=== PATIENT | male | born 1940 | race Caucasian/White ===

== ENCOUNTER 2020-02-11 11:32 | Emergency (ER) | payer MEDICARE, SELFPAY ==
[2020-02-11 11:35] VITALS: BP 175/73; PULSE 70; RESP 18; TEMP 36.7; O2SAT 96; BMI 35.4
--- NOTE | 2020-02-11 12:24 | CT_ITS ---
WS: [id number] CT ABDOMEN AND PELVIS NONCONTRAST HISTORY: abdominal pain, constipation, distension TECHNIQUE: Imaging performed through the abdomen and pelvis. Coronal and sagittal reformats are submi tted. All CT scans at [facility] use at least one of these dose optimization techniques: automated exposure control; mA and/or kV adjustment per patient size (includes targeted exams where d ose is matched to clinical indication); or iterative reconstruction. DLP: 1186.18 mGy.cm COMPARISON: 01/05/2017 Lower thorax: Dependent changes at the lung bases. Mild cardiomegaly. Small hiatal hernia. Liver: Mild hepatic steatosis. No bile duct dilatation. Gallbladder: Normally distended gallbladder with adjacent pericholecystic fluid. There is increased d ensity near the neck of the gallbladder which may be stones. No cholelithiasis identified in 2009. Pancreas: Normal size and attenuation. Normal pancreatic duct. No pancreatitis or mass. Spleen: Normal. Adrenal glands: Normal. No mass. Right kidney: Mild perinephric stranding. Normal size kidney with no obstruction. Left kidney: Mild perinephric stranding. No obstruction. Aorta: Mild atherosclerosis abdominal aorta with no aneurysm. No free fluid, intraperitoneal air or significant lymphadenopathy. GI tract: No obstruction of the GI tract. The appendix is normal. RIGHT inguinal hernia contains a lo op of small bowel which is not dilated. Abdominal wall: Fat-containing umbilical hernia. Pelvis: Prostate gland is mildly enlarged. Urinary bladder is normally distended. No adenopathy or fr ee fluid. Osseous structures: Mild straightening of the normal lumbar lordosis. Mild LEFT convex curvature of t he lumbar spine. CT/CT abdomen pelvis wo con [id number] IMPRESSION: 1. Acute cholecystitis. Stones and sludge near the neck of the gallbladder. 2. No bile duct dilatation. 3. Mild cardiomegaly. 4. Normal appendix. 5. No ascites.
--- NOTE | 2020-02-11 12:27 | ED_ITS ---
HPI - Abdominal Pain General: Chief Complaint: Abdominal Pain Stated Complaint: Abdomin pain, nausea,vomiting Time Seen by Provider: 02/11/20 12:05 Source: patient and family (daughter) Mode of arrival: ambulatory Limitations: no limitations History of Present Illness: MD elicited complaint: abdominal pain Pertinent past history: constipation Onset (ago): day(s) (5) Pain Consistency: constant Location: Diffuse Quality: cramping Radiation: none Migration to: no migration Exacerbating factors: nothing Relieving factors: nothing Associated Symptoms: Reports bloating, change in bowel habits, constipation, GI cramping, fever(s) and nausea; Denies anorexia, belching, change in stool character, chills, coffee ground emesis, diarrhea, dyspepsia, dysuria, excessive flatus, heartburn, hematochezia, hematuria, hematemesis, fecal incontinence, loose stools, melena, poor appetite, syncope and vomiting Review of Systems General: Reports: 10 or more systems reviewed and unremarkable except in HPI and below Const: Reports: fever(s); Denies: chills Eyes: Denies: change in vision or blurry vision ENMT: Denies: throat pain, enlarged tonsils, odynophagia, hoarseness, mouth pain or swelling of lips/tongue Card: Denies: syncope Resp: Denies: dyspnea, productive cough or non-productive cough GI: Reports: nausea, constipation, bloating, GI cramping and change in bowel habits; Denies: vomiting, hematemesis, coffee ground emesis, heartburn, diarrhea, belching, excessive flatus, fecal incontinence, change in stool character, hematochezia or melena : Denies: dysuria or hematuria Musc: Denies: neck pain, back pain or extremity swelling Skin/Breast: Denies: rash, pruritus or erythema Neuro: Denies: headache(s), numbness in extremities or weakness in extremities Endo: Denies: polyuria, polydipsia or tired all the time Physical Exam Const: COMMON NORMALS: no acute distress, average body habitus, patient oriented x3, no limitations, healthy appearing, alert and well nourished HENMT: COMMON NORMALS: normocephalic, atraumatic and moist oral mucous membranes HEAD & SCALP: normocephalic and atraumatic Neck/C-Spine: COMMON NORMALS: no meningeal signs and no JVD Resp: COMMON NORMALS: normal respiratory effort, No retractions, No use of accessory muscles, clear to auscultation bilaterally and percussion normal AUSCULTATION: clear to auscultation bilaterally PERCUSSION: percussion normal Cardio: COMMON NORMALS: no JVD, regular rate, regular rhythm, S1 normal heart sound present, S2 normal heart sound present, No gallops present (Cardio), No clicks present (Cardio), No murmurs present (Cardio), No rub (Cardio) and Peripheral pulses 2+ throughout RATE: regular rate RHYTHM: regular rhythm HEART SOUNDS: S1 normal heart sound present and S2 normal heart sound present PERIPHERAL PULSES: Peripheral pulses 2+ throughout GI: COMMON NORMALS: Soft to palpation, No hepatosplenomegaly present, no masses and no bruits INSPECTION: Yes abdominal distension AUSCULTATION: Yes Hyperactive bowel sounds present PALPATION: Yes Soft to palpation, Yes Tenderness to palpation present (GI) (periumbilical), Yes No hepatosplenomegaly present and Yes Hernia present (what feels like a ventral hernia) Extremity: COMMON NORMALS: normal to inspection, full ROM, capillary refill normal, no calf tenderness and no pedal edema Neuro: COMMON NORMALS: patient oriented x3 SENSORIUM/ORIENTATION: Yes alert MENINGEAL SIGNS: Yes no meningeal signs Skin: COMMON NORMALS: no rashes or lesions noted, no wounds, turgor normal, no jaundice, no petechiae and no mottling GENERAL SKIN EXAM: no rashes or lesions noted and turgor normal Course Reevaluation(s): Reevaluation #1: Discussed his labs and imaging findings with him. Explained my conversation with the radiologist who is convinced he has early cholecystitis. Will give him a dose of IV antibiotic here and discharge him with a prescription for oral ciprofloxacin and flagyl and some pain medications. Patient and daughter voiced understanding and all questions answered. Time: 15:14 Vital Signs: Vital signs: Vital Signs Temperature 98.1 F 02/11/20 11:35 Pulse Rate 78 02/11/20 16:33 Respiratory Rate 18 02/11/20 16:33 Blood Pressure 139/76 02/11/20 16:33 Pulse Oximetry 96 02/11/20 11:35 MDM - Abdominal Pain MDM Narrative: Medical decision making narrative: 79-year-old gentleman who presented to the emergency department with complaints of abdominal pain. Evaluation in the emergency department is consistent with early cholecystitis. He is nonseptic, liver enzymes are not elevated, and it is appropriate to treat him on an outpatient basis. He is referred to a surgeon for evaluation in the office. Medical Records: Attestation: I reviewed the patient's medical records. Lab Data: Attestation: I reviewed the patient's lab results. Labs: Lab Results 02/11/20 02/11/20 02/11/20 Range/Units 11:59 11:59 12:40 WBC 13.9 H (4.0-10.0) 10^3/ uL RBC 4.65 (4.1-5.3) 10^6/u L Hgb 11.8 (11.7-16.6) g/dL Hct 38.5 L (42.0-52.0) % MCV 82.8 (80-94) fL MCH 25.4 L (28.0-34.0) pg MCHC 30.6 (30.0-36.0) g/dL RDW 15.8 H (12.1-15.1) % Plt Count 342 (130-400) 10^3/c mm MPV 11.3 H (7.4-10.4) fL Neut % (Auto) 72.8 % Lymph % (Auto) 17.5 % [place] % (Auto) 8.0 % Eos % (Auto) 0.9 % Baso % (Auto) 0.4 % Neut # (Auto) 10.14 H (1.8-7.7) 10^3/u L Lymph # (Auto) 2.4 (0.8-4.8) 10^3/u L [place] # (Auto) 1.1 H (0.2-0.9) 10^3/u L Eos # (Auto) 0.1 (0.0-0.8) 10^3/u L Baso # (Auto) 0.1 (0.0-0.1) 10^3/u L Nucleated RBC % (a uto) 0 % Nucleated RBCs # 0.0 /100WBC Sodium 138 (136-145) mmol/L Potassium 3.6 (3.5-5.1) mmol/L Chloride 98 (98-107) mmol/L Carbon Dioxide 31 H (22-29) mmol/L Anion Gap 12.6 (5-19) BUN 12 (8-23) mg/dL Creatinine 0.5 L (0.7-1.2) mg/dL GFR Calculation Not Reportable Glucose 154 H (65-115) mg/dL Calculated Osmolal ity 289 (285-295) mOsm/k g Lactate (0.5-2.2) mmol/L Calcium 9.1 (8.5-10.5) mg/dL Total Bilirubin 0.7 (0.15-1.2) mg/dL AST 26 (0-40) U/L ALT 25 (0-41) U/L Alkaline Phosphata se 95 (40-130) IU/L C-Reactive Protein 114.6 H (0.0-4.9) mg/L Total Protein 7.5 (6.6-8.7) g/dL Albumin 3.9 (3.5-5.2) g/dL Globulin 3.6 (1.3-4.6) g/dL Lipase 23 (13-60) U/L Urine Color Yellow (Yellow) Urine Appearance Clear (CLEAR) Urine pH 7 (5-7) Ur Specific Gravit y 1.010 (1.005-1.030) Urine Protein Neg (Negative) Urine Glucose (UA) Norm (Normal) Urine Ketones Negative (Negative) Urine Blood Neg (Negative) Urine Nitrate Negative (Negative) Urine Bilirubin Neg (Negative) Urine Urobilinogen 1 H (Negative) mg/dL Ur Leukocyte Priyanka ase Negative (Negative) 02/11/20 Range/Units 12:45 WBC (4.0-10.0) 10^3/ uL RBC (4.1-5.3) 10^6/u L Hgb (11.7-16.6) g/dL Hct (42.0-52.0) % MCV (80-94) fL MCH (28.0-34.0) pg MCHC (30.0-36.0) g/dL RDW (12.1-15.1) % Plt Count (130-400) 10^3/c mm MPV (7.4-10.4) fL Neut % (Auto) % Lymph % (Auto) % [place] % (Auto) % Eos % (Auto) % Baso % (Auto) % Neut # (Auto) (1.8-7.7) 10^3/u L Lymph # (Auto) (0.8-4.8) 10^3/u L [place] # (Auto) (0.2-0.9) 10^3/u L Eos # (Auto) (0.0-0.8) 10^3/u L Baso # (Auto) (0.0-0.1) 10^3/u L Nucleated RBC % (a uto) % Nucleated RBCs # /100WBC Sodium (136-145) mmol/L Potassium (3.5-5.1) mmol/L Chloride (98-107) mmol/L Carbon Dioxide (22-29) mmol/L Anion Gap (5-19) BUN (8-23) mg/dL Creatinine (0.7-1.2) mg/dL GFR Calculation Glucose (65-115) mg/dL Calculated Osmolal ity (285-295) mOsm/k g Lactate 0.9 (0.5-2.2) mmol/L Calcium (8.5-10.5) mg/dL Total Bilirubin (0.15-1.2) mg/dL AST (0-40) U/L ALT (0-41) U/L Alkaline Phosphata se (40-130) IU/L C-Reactive Protein (0.0-4.9) mg/L Total Protein (6.6-8.7) g/dL Albumin (3.5-5.2) g/dL Globulin (1.3-4.6) g/dL Lipase (13-60) U/L Urine Color (Yellow) Urine Appearance (CLEAR) Urine pH (5-7) Ur Specific Gravit y (1.005-1.030) Urine Protein (Negative) Urine Glucose (UA) (Normal) Urine Ketones (Negative) Urine Blood (Negative) Urine Nitrate (Negative) Urine Bilirubin (Negative) Urine Urobilinogen (Negative) mg/dL Ur Leukocyte Priyanka ase (Negative) Imaging Data ^: CT Abd/Pel: Attestation: I personally reviewed and interpreted this imaging study as follows: Radiologist's impression: [address] [address] [address] Scan Report Signed Patient: Jaden Stevenson [facility] #: [id number] : 1Acct#:[id number] Age/Sex: 79 / MADM Date: 02/11/20 Loc: ERRoom/Bed: Attending Dr: Ordering Provider/Ordering MD: Tony Tracy [place] [facility] of Service: 02/11/20 Procedure(s): CT abdomen pelvis wo con [id number] Accession Number(s): [id number] Report Number: [id number] WS: [id number] CT ABDOMEN AND PELVIS NONCONTRAST HISTORY: abdominal pain, constipation, distension TECHNIQUE: Imaging performed through the abdomen and pelvis. Coronal and sagittal reformats are submitted. All CT scans at [facility] use at least one of these dose optimization techniques: automated exposure control; mA and/or kV adjustment per patient size (includes targeted exams where dose is matched to clinical indication); or iterative reconstruction. DLP: 1186.18 mGy.cm COMPARISON: 01/05/2017 Lower thorax: Dependent changes at the lung bases. Mild cardiomegaly. Small hiatal hernia. Liver: Mild hepatic steatosis. No bile duct dilatation. Gallbladder: Normally distended gallbladder with adjacent pericholecystic fluid. There is increased density near the neck of the gallbladder which may be stones. No cholelithiasis identified in 2009. Pancreas: Normal size and attenuation. Normal pancreatic duct. No pancreatitis or mass. Spleen: Normal. Adrenal glands: Normal. No mass. Right kidney: Mild perinephric stranding. Normal size kidney with no obstruction. Left kidney: Mild perinephric stranding. No obstruction. Aorta: Mild atherosclerosis abdominal aorta with no aneurysm. No free fluid, intraperitoneal air or significant lymphadenopathy. GI tract: No obstruction of the GI tract. The appendix is normal. RIGHT inguinal hernia contains a loop of small bowel which is not dilated. Abdominal wall: Fat-containing umbilical hernia. Pelvis: Prostate gland is mildly enlarged. Urinary bladder is normally distended. No adenopathy or free fluid. Osseous structures: Mild straightening of the normal lumbar lordosis. Mild LEFT convex curvature of the lumbar spine. CT/CT abdomen pelvis wo con [id number] IMPRESSION: 1. Acute cholecystitis. Stones and sludge near the neck of the gallbladder. 2. No bile duct dilatation. 3. Mild cardiomegaly. 4. Normal appendix. 5. No ascites. Dictated By:Shanda Carnes DO Signed By:Shanda Carnes DOSigned Date/Time:02/11/20 1344 DD/ 1337 US: Attestation: I personally reviewed and interpreted this imaging study as follows: Radiologist's impression: [address] [address] Ultrasound Report Signed Patient: Jaden Stevenson #: [id number] : 1940cct#:[id number] Age/Sex: 79 / MADM Date: 02/11/20 Loc: ERRoom/Bed: Attending Dr: Ordering Provider/Ordering MD: Tony Tracy MD, [facility] of Service: 02/11/20 Procedure(s): US gall bladder [id number] Accession Number(s): [id number] Report Number: [id number] WS: [id number] RIGHT UPPER QUADRANT ULTRASOUND HISTORY: RUQ pain COMPARISON: 09/09/[address] abdomen 02/11/2020. Liver: 19.9 cm in length. Liver is slightly enlarged. Mild hepatic steatosis. No bile duct dilatation. Gallbladder: Well distended gallbladder. Stones and sludge at the gallbladder neck. There is not a lot of pericholecystic fluid or gallbladder wall thickening that was seen on CT. CBD: 0.5 cm Pancreas: Tail is completely obscured. Right kidney: 13.6 cm in length. Normal size and echogenicity. No hydronephrosis or mass. Aorta and IVC: Unremarkable abdominal aorta and IVC. No ascites. US/US gall bladder [id number] IMPRESSION: 1. Cholelithiasis. Cannot confirm acute cholecystitis based upon the ultrasound findings. CT findings were suspicious for acute cholecystitis. 2. No bile duct dilatation. Dictated By:Shanda Carnes DO Signed By:Shanda Carnes DOSigned Date/Time:02/11/20 1452 DD/ 1441 Discharge Plan Discharge Patient Disposition: Home Clinical Impression: Acute calculous cholecystitis Condition: Stable Prescriptions: New ciprofloxacin HCl 500 mg tablet 500 mg PO BID Qty: 14 RF: 0 Flagyl 500 mg tablet 250 mg PO TID Qty: 21 RF: 0 [place] 5-325 mg tablet 1 tab PO Q8H PRN (Reason: pain) Qty: 12 RF: 0 Discharge Orders: Discharge Order (Routine); Ordered 02/11/20 Ordered By: Tony Tracy Referrals: Jerson Hutson MD [Primary Care Provider] - 1-3 days Discharge Diet: Low Fat Discharge Activity: Increase activity as tolerated Patient Instructions: Cholecystitis (ED) Activity Restrictions/Additional Instructions: Return for any new or worsening symptoms. Follow-up with your primary care provider within 3 days. You will be contacted by the office of the surgeon to schedule an appointment to be seen by the surgeon. Consume a low-fat diet as far to make the pain worse. Take the antibiotics as prescribed and the pain medication as needed. Discharge Date/Time: 02/11/20 16:31 Coding Level of Care Code ED Certified Registered Dental Assistant for Verag Fwd Exam Comprehensive
[2020-02-11 12:38] LABS: Basophils # 0.1 10^3/uL (0.0-0.1); Basophils % 0.4 %; Eosinophils # 0.1 10^3/uL (0.0-0.8); Eosinophils % 0.9 %; Hematocrit 38.5 % (42.0-52.0); Hemoglobin 11.8 g/dL (11.7-16.6); Lymphocytes # 2.4 10^3/uL (0.8-4.8); Lymphocytes % 17.5 %; Mean Corpuscular HGB Conc 30.6 g/dL (30.0-36.0); Mean Corpuscular Hemoglobin 25.4 pg (28.0-34.0); Mean Corpuscular Volume 82.8 fL (80-94); Mean Platelet Volume 11.3 fL (7.4-10.4); Monocytes # 1.1 10^3/uL (0.2-0.9); Neutrophils # 10.14 10^3/uL (1.8-7.7); Neutrophils % 72.8 %; Nucleated Red Blood Cells % 0 %; Platelet Count 342 10^3/cmm (130-400); Red Blood Count 4.65 10^6/uL (4.1-5.3); Red Cell Distribution Width 15.8 % (12.1-15.1); White Blood Count 13.9 10^3/uL (4.0-10.0)
[2020-02-11] MEDS: ondansetron 2 mg/ML SDV 2 mL 4 MG IVP (12:43)
[2020-02-11 12:51] VITALS: RESP 20
[2020-02-11] MEDS: morphine 4 mg/mL SDV 1 mL IVP (12:51)
[2020-02-11 12:54] LABS: Alanine Aminotransferase 25 U/L (0-41); Albumin Level 3.9 g/dL (3.5-5.2); Alkaline Phosphatase 95 IU/L (40-130); Anion Gap 12.6 (5-19); Aspartate Amino Transferase 26 U/L (0-40); Blood Urea Nitrogen 12 mg/dL (8-23); C Reactive Protein 114.6 mg/L (0.0-4.9); Calcium 9.1 mg/dL (8.5-10.5); Carbon Dioxide 31 mmol/L (22-29); Chloride 98 mmol/L (98-107); Globulin 3.6 g/dL (1.3-4.6); Glucose 154 mg/dL (65-115); Lipase 23 U/L (13-60); Osmolality Calculated 289 mOsm/kg (285-295); Potassium 3.6 mmol/L (3.5-5.1); Sodium 138 mmol/L (136-145); Total Bilirubin 0.7 mg/dL (0.15-1.2); Total Protein 7.5 g/dL (6.6-8.7)
[2020-02-11 13:32] LABS: Lactate (Lactic Acid level) 0.9 mmol/L (0.5-2.2)
[2020-02-11 13:49] LABS: Add Urine Microscopic? NO
--- NOTE | 2020-02-11 13:53 | US_ITS ---
WS: [id number] RIGHT UPPER QUADRANT ULTRASOUND HISTORY: RUQ pain COMPARISON: 09/09/[address] abdomen 02/11/2020. Liver: 19.9 cm in length. Liver is slightly enlarged. Mild hepatic steatosis. No bile duct dilatation . Gallbladder: Well distended gallbladder. Stones and sludge at the gallbladder neck. There is not a lo t of pericholecystic fluid or gallbladder wall thickening that was seen on CT. CBD: 0.5 cm Pancreas: Tail is completely obscured. Right kidney: 13.6 cm in length. Normal size and echogenicity. No hydronephrosis or mass. Aorta and IVC: Unremarkable abdominal aorta and IVC. No ascites. US/US gall bladder [id number] IMPRESSION: 1. Cholelithiasis. Cannot confirm acute cholecystitis based upon the ultrasoun d findings. CT findings were suspicious for acute cholecystitis. 2. No bile duct dilatation.
[2020-02-11 13:56] LABS: Bilirubin Urine Neg (Negative); Blood Urine Neg (Negative); Glucose Urine UA Norm (Normal); Ketones Urine Negative (Negative); Leukocyte Esterase Urine Negative (Negative); Nitrate Urine Negative (Negative); Protein Urine Neg (Negative); Urine Appearance Clear (CLEAR); Urine Color Yellow (Yellow); Urobilinogen Urine 1 mg/dL (Negative); pH Urine 7 (5-7)
--- NOTE | 2020-02-11 15:29 | DCPLANNER ---
manager pacu was asked to schedule a follow up appointment for patient with general surgery. manager pacu emailed both Adri and Asya about patient needing a follow up appointment with [facility]. manager pacu gave clinic patients information, the information will be printed and reviewed. Clinic will call patient with appointment information.
[2020-02-11] MEDS: piperacillin-tazobactam 3.375 GM in sodium chloride 0.9% (plus) 50 ML IV (15:32)
[2020-02-11 16:33] VITALS: BP 139/76; PULSE 78; RESP 18
--- NOTE | 2020-02-16 11:52 | DCPLANNER ---
Patient has a follow up appointment scheduled for Sunday, February 16, 2020 at 1:[address] Garcia. Clinic will call patient with appointment information.
--- NOTE | 2020-03-29 12:37 | DCPLANNER ---
Patient had a follow up appointment scheduled for 02.16.20 with general surgery - patient did attend appointment.
== END 2020-02-11 16:31 | disposition home or self-care (01) ==
PROVIDERS: Emergency Provider Family Medicine; PCP Family Medicine
DX: K80.00 Calculus of gallbladder with acute cholecystitis without obstruction (principal)
CPT/HCPCS: 12345; 74176; 76705; 80053; 81003; 83605; 83690; 85025; 86140; 96365; 96375; 99283; 99284; J2270; J2405; J2543

== ENCOUNTER → 2020-02-18 11:51 | Outpatient (BNVA) | payer MEDICARE, SELFPAY | PROVIDERS: PCP Family Medicine; Visit Provider Surgery | DX: Z11.59 Encounter for screening for other viral diseases (principal); K80.00 Calculus of gallbladder with acute cholecystitis without obstruction | CPT/HCPCS: 87635 ==

== ENCOUNTER 2020-02-24 06:18 | Day surgery (SDC) | payer MEDICARE, SELFPAY ==
--- NOTE | 2020-02-23 10:00 | ECG_ITS ---
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 Measurements Intervals [place] Rate: 62 P: 67 [place]: 236 QRS: 60 QRSD: 142 T: 40 QT: 435 QTc: 443 Interpretive Statements SINUS RHYTHM WITH FIRST DEGREE AV BLOCK RIGHT BUNDLE BRANCH BLOCK [120+ ms QRS DURATION, UPRIGHT V1, 40+ ms S IN I/aVL/V4/V5/V6] No previous ECG available for comparison Electronically Signed On 02-23-2020 19:25:29 LADLE PATCHER by Sue Jose M.D. [id number]
--- NOTE | 2020-02-23 10:12 | ANES.PREANE2 ---
Pre-Anesthetic Assessment Pre-Anesthetic Assessment: Height/Weight: Height 1.73 m Weight 104.326 kg Preop Diagnosis: gallstones Proposed Procedure: Operation Date: 02/24/20 07:50 Proposed Procedures p Laparoscopic possible open Cholecystectomy 63133 K80.00(Not Applicable) - Rich Garcia MD Familial anesthetic complications: None Social: Social History: No alcohol and No tobacco Exam: Pre-Anes Outpt Exam: alert, oriented x 3, clear to auscultation bilaterally and regular rate & rhythm Airway: Cervical ROM: WNL (has had neck surgery) MP: 2 Dentition: False CV/HEM: CV/HEM: HTN Metabolic: Metabolic: DM Musc/skel: Musc/skel: Lower Back Pain and OA/DJD Anesthetic Plan: ASA status: 2 Anesthesia: General Risk of > 500 ml blood loss (7ml/kg in children): No PFSH Anesthesia PFSH: Medical History (Updated 02/19/20 @ 00:00 by ) BPH (benign prostatic hyperplasia) Depression Diabetes HTN (hypertension), benign Surgical History History of foot surgery History of neck surgery History of total bilateral knee replacement Family History Denies family history of Anesthesia complication Bleeding disorder Social History Smoking and tobacco status: never smoked Second hand smoke exposure: No Alcohol intake: never Adopted: No Caregiver/support person: Yes Lives independently: Yes Housing: House Marital status: / Data Anesthesia Cardiac Studies: No Data to Display
[2020-02-23 11:55] VITALS: BP 135/71; PULSE 63; RESP 18; TEMP 36.5; O2SAT 93
[2020-02-24] VITALS (7 sets, daily range): BP systolic 99–140; BP diastolic 52–67; PULSE 53–61; RESP 18–26; TEMP 36.6–37; O2SAT 93–95
[2020-02-24 06:47] LABS: Glucose Point of Care 168 mg/dL (70-110)
[2020-02-24] MEDS: sodium chloride 0.9% 1,000 ML 30 ML IV (06:50)
--- NOTE | 2020-02-24 06:59 | W.PM.OPSUD ---
Surgery/Procedure H&P Update DATE OF PROCEDURE: February 24, 2020 DATE H&P PERFORMED: 02/16/20 H&P UPDATE INFORMATION: I have reviewed H&P completed within last 30 days, I have examined patient prior to procedure and No changes to prior documentation PREOP DIAGNOSIS: cholelithiasis PLANNED PROCEDURE: Operation Date: 02/24/20 07:50 Proposed Procedures p Laparoscopic possible open Cholecystectomy 46699 K80.00(Not Applicable) - Rich Garcia MD
--- NOTE | 2020-02-24 07:25 | ANES.PREANE2 ---
Pre-Anesthetic Assessment Pre-Anesthetic Assessment: Height/Weight: Height 1.73 m Weight 104.326 kg Preop Diagnosis: cholelithiasis Proposed Procedure: Operation Date: 02/24/20 07:50 Proposed Procedures p Laparoscopic possible open Cholecystectomy 79097 K80.00(Not Applicable) - Rich Garcia MD Last intake: Intake Last Liquid Date 02/23/20 Last Liquid Time 17:00 Last Solid Date 02/23/20 Last Solid Time 17:00 Social: Social History: No alcohol and No tobacco Exam: Pre-Anes Outpt Exam: alert, oriented x 3, clear to auscultation bilaterally and regular rate & rhythm Airway: Submandibular: WNL Cervical ROM: WNL MP: 2 Dentition: False History/ROS: No significant complaints Pulmonary: Pulmonary: None reported CV/HEM: CV/HEM: HTN Comments: RBBB on EKG, no clinical correlation : Comments: BPH Hepatic: Hepatic: None reported GI: GI: None reported Metabolic: Metabolic: DM Musc/skel: Musc/skel: None reported Neuropsych: Neuropsych: None reported Anesthetic Plan: ASA status: 3 Anesthesia: General PFSH Anesthesia PFSH: Medical History (Updated 02/19/20 @ 00:00 by ) BPH (benign prostatic hyperplasia) Depression Diabetes HTN (hypertension), benign Surgical History History of foot surgery History of neck surgery History of total bilateral knee replacement Family History Denies family history of Anesthesia complication Bleeding disorder Social History Smoking and tobacco status: never smoked Second hand smoke exposure: No Alcohol intake: never Adopted: No Caregiver/support person: Yes Lives independently: Yes Housing: House Marital status: / Data Anesthesia Other Labs: Laboratory Results - last 48 hr 02/24/20 06:43 POC Glucose 168 Cardiac Studies: No Data to Display
--- NOTE | 2020-02-24 09:47 | SUR.OPER ---
0905 - Pt's daughter Laurence updated on surgery progress and pt status via her cell phone.
--- NOTE | 2020-02-24 10:14 | P.OP_ITS ---
Operative Report Date of procedure: February 24, 2020 Pre-op Diagnosis: cholelithiasis Post-op Diagnosis: Acute calculus cholecystitis Gallbladder wall was thickened, there was spillage of stones which were removed except for one possible stone that could not be retrieved. Procedure Done: Laparoscopic cholecystectomy Specimens removed/disposition: Gallbladder Surgeon: Rich Garcia Anesthesia: General Condition: stable Disposition: PACU Procedure: The patient was taken to the operating room and was intubated under general anesthesia. After the antibiotic had been administered, the abdomen was prepped and draped in a sterile manner. Using a #15 blade, a 1 centimeter infraumbilical curvilinear incision was made and using an open Jeremiah technique the peritoneal cavity was entered. A 10 millimeter port was placed and 15 millimeters of pneumoperitoneum was created. A 10 millimeter, 30 degrees scope was then introduced. Three 5 millimeter ports were placed in the epigastric, midclavicular and the anterior axillary line two fingerbreadths below the costal margin on the right side under the direct visualization. The omentum and stomach was adherent to the body of the gallbladder, which was slowly peeled libra y revealing inflamed gallbladder with thickened wall. Ratcheted forceps were introduced into the lateral most port and was used to retract the fundus of the gallbladder cephalad and using forceps the infundibulum of the gallbladder was retracted laterally. There is opening in the fundus of the gallbladder when it was retracted with spillage of bile which is irrigated and suctioned out. Using L-hook cautery the peritoneum overlying the Calot's triangle was opened medially and laterally until the cystic duct was skeletonized. The cystic artery was divided with cautery. Dissection was carried along the body of the gallbladder and after ensuring critical view of safety, 4 clips applied on the cystic duct and cut leaving, 3 clips on the remaining portion of the duct and 2 clips on the remaining portion of the artery. The rest of the gallbladder was dissected off the liver using L-hook cautery. During dissection the opening in the fundus and last resulting in spillage of large stones. There was some oozing from the gallbladder fossa and a 4 x 8 cm Surgicel was placed. An EndoCatch bag was introduced to remove the gallbladder and all the spilled stones. There was possibly another one stone seen but could not be identified later. All the ports were removed under direct visualization and there was no bleeding noted from the port sites. The fascia of the umbilicus was closed using [id number] 0 Vicryl sutures and the subcutaneous tissue was approximated using 3-0 Vicryl sutures. The skin at all four ports were closed using 4-0 Monocryl and surgical glue.. A total of 10 millimeters of 0.5% Marcaine was infiltrated around the port sites. The patient was stable throughout the procedure.
--- NOTE | 2020-02-24 11:13 | ANE.PACU2 ---
Inpatient post-anesthesia follow up: Airway intact: Yes Vital signs: Temperature 98.6 F Pulse Rate 58 Respiratory Rate 18 Blood Pressure 140/59 Pulse Oximetry 95 Oxygen Delivery Me thod Nasal Cannula Oxygen Flow Rate 4 Fraction of Inspir ed Oxygen Hydration adequate: Yes Nausea and vomiting: No Pain level: 3 Mental status: Baseline
== END 2020-02-24 11:25 | disposition home or self-care (01) ==
PROVIDERS: PCP Family Medicine; Visit Provider Surgery
PROC: 0FT44ZZ Resection of Gallbladder, Percutaneous Endoscopic Approach (ICD-10-PCS; CPT 47562; principal; 2020-02-24 07:50)
DX: K80.00 Calculus of gallbladder with acute cholecystitis without obstruction (principal); I10 Essential (primary) hypertension; E11.9 Type 2 diabetes mellitus without complications; Z79.82 Long term (current) use of aspirin; Z79.891 Long term (current) use of opiate analgesic; Z79.4 Long term (current) use of insulin
CPT/HCPCS: 47562; 12345; 36416; 82962; 88304; 93005; 96365; J0690; J2370; J2405; J2704; J2710; J3010; J3490; J7030

== ENCOUNTER 2020-08-22 11:32 | Outpatient (CLI) | payer MEDICARE, SELFPAY ==
--- NOTE | 2020-08-22 11:42 | XRR_ITS ---
PROCEDURE INFORMATION: Exam: XR Thoracic Spine Exam date and time: 08/22/2020 12:39 PM Age: 79 years old Clinical indication: Pain in thoracic spine; Additional info: Chronic back pain/cervical disc disorder TECHNIQUE: Imaging protocol: XR of the thoracic spine. Views: 3 views. COMPARISON: No relevant prior studies available. FINDINGS: Bones/joints: There is narrowing of the intervertebral disc space at multiple levels corresponding to moderate osteoarthritis. No acute fracture. Normal alignment. Soft tissues: Unremarkable. XR/XR thoracic spine 2V [id number] IMPRESSION: Moderate osteoarthritis dorsal spine Otherwise No acute findings.
--- NOTE | 2020-08-22 11:42 | XRR_ITS ---
PROCEDURE INFORMATION: Exam: XR Lumbosacral Spine Exam date and time: 08/22/2020 12:39 PM Age: 79 years old Clinical indication: Low back pain; Additional info: Chronic back pain/cervical disc disorder TECHNIQUE: Imaging protocol: XR of the lumbosacral spine. Views: 2 or 3 views. COMPARISON: CT abdomen pelvis con [id number] 02/11/2020 1:11 PM FINDINGS: Bones/joints: There is narrowing, sclerosis, and vacuum phenomena at multiple levels corresponding to severe osteoarthritis.. No acute fracture. Normal alignment. Soft tissues: Unremarkable. XR/XR lumbar spine 2-3V* [id number] IMPRESSION: 1. Severe osteoarthritis 2. Otherwise No acute findings.
--- NOTE | 2020-08-22 11:42 | XRR_ITS ---
PROCEDURE INFORMATION: Exam: XR Cervical Spine Exam date and time: 08/22/2020 12:39 PM Age: 79 years old Clinical indication: Pain; Cervicalgia; Prior surgery; Surgery type: C spine; Additional info: Chronic back pain/cervical disc disorder TECHNIQUE: Imaging protocol: XR of the cervical spine. Views: 2 or 3 views. COMPARISON: No relevant prior studies available. FINDINGS: Bones/joints: There is severe osteopenia and osteoarthritis present. Anterior spinal fusion is seen with metallic plate and screws anterior to C5-C6 and C7.. No acute fracture. There is loss of cervical lordosis consistent with muscle spasm. Soft tissues: Unremarkable. XR/XR cervical spine 3V* [id number] IMPRESSION: 1. No acute findings. 2. Surgical hardware anterior to cervical spine 3. Osteopenia and osteoarthritis. 4. Loss of cervical lordosis
== END 2020-08-22 11:33 | disposition home or self-care (01) ==
PROVIDERS: PCP Family Medicine; Visit Provider Family Medicine
DX: M54.5 Low back pain (principal); M54.6 Pain in thoracic spine; M54.2 Cervicalgia; M47.816 Spondylosis without myelopathy or radiculopathy, lumbar region; M85.88 Other specified disorders of bone density and structure, other site; M47.812 Spondylosis without myelopathy or radiculopathy, cervical region
CPT/HCPCS: 72040; 72070; 72100

== ENCOUNTER → 2020-09-22 08:02 | Outpatient (BNVA) | payer MEDICARE, SELFPAY | PROVIDERS: PCP Family Medicine; Referring Provider Family Medicine; Visit Provider Orthopaedic Surgery | DX: M47.896 Other spondylosis, lumbar region (principal); M54.5 Low back pain | CPT/HCPCS: 72120 ==

== ENCOUNTER 2020-10-13 16:57 | Outpatient (CLI) | payer MEDICARE, SELFPAY ==
--- NOTE | 2020-10-13 17:30 | MR_ITS ---
WS: [id number] MRI LUMBAR SPINE NONCONTRAST HISTORY: M54.9 - Dorsalgia, unspecified COMPARISON: None available. TECHNIQUE: Sagittal and axial multisequence imaging is submitted. Marked straightening of the normal lumbar lordosis. L1 anterolisthesis by 6 mm and L2 retrolisthesis by 5 mm. Severe disc space narrowing and desiccation throughout the lumbar spine. Reactive endplate marrow denise ma at L1-2 and L4-5. No acute fractures. Conus terminates normally at L1. T12-L1: Diffuse asymmetric disc bulging extends greatest to the LEFT. There is effacement of ventral thecal sac and mass effect causing mild central and RIGHT subarticular recess stenosis. Moderate to s evere LEFT subarticular stenosis and moderate bilateral foraminal stenosis. L1-L2: Marked asymmetric disc bulging with moderate facet and ligamentum flavum arthritis. Moderate c entral and bilateral subarticular recess and RIGHT foraminal stenosis. Severe LEFT foraminal stenosis due to disc and osteophyte disease. L2-L3: Diffuse annular disc bulging with facet and ligamentum flavum arthritis. Disc bulging is causi ng effacement of ventral CSF and extends into the lateral recesses and subarticular foramina and extr aforaminal. Moderate central stenosis. Suspect there is a small disc protrusion extending into the LE FT lateral recess which may be encroaching upon the LEFT L3 nerve root. Moderate bilateral foraminal stenosis with moderate to severe bilateral subarticular recess stenosis greatest on the LEFT. L3-L4: Diffuse annular disc bulging and osteophytic ridging. Disc and osteophyte encroachment upon th e thecal sac and foramen causing mild central stenosis. Moderate bilateral subarticular recess and fo raminal stenosis. L4-L5: Diffuse asymmetric disc bulging and osteophytic ridging with moderate bilateral facet joint ar thritis. Asymmetric disc bulging and protrusion extends into the LEFT lateral recess posteriorly disp lacing the LEFT L5 nerve root. Mild central stenosis with severe bilateral subarticular recess and fo raminal stenosis. L5-S1: Diffuse annular disc bulging and osteophytic ridging with mild facet arthritis. Moderate to se jessa LEFT foraminal stenosis and LEFT subarticular recess stenosis. Only mild stenosis on the RIGHT. Enlarged prostate gland encroaches into the urinary bladder. MR/MR lumbar spine wo con* [id number] IMPRESSION: 1. 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 Stenose s due to combination of disc disease, disc protrusions, facet and ligamentum fl avum arthritis. 2. Moderate to severe LEFT subarticular recess and moderate bilateral foramina l stenosis at T12-L1. 3. Severe LEFT foraminal stenosis at L1-2 with moderate central and bilateral subarticular and RIGHT foraminal stenosis. 4. Moderate to severe bilateral subarticular recess stenosis on the LEFT at L2 -3 with moderate central stenosis. Suspect there may be a small disc protrusion at extending into the LEFT lateral recess abutting the L3 nerve root. 5. Moderate bilateral subarticular and foraminal stenosis at L3-4. 6. Severe bilateral subarticular recess and foraminal stenosis at L4-5. 7. Moderate to severe LEFT foraminal and LEFT subarticular recess stenosis at L5-S1 with only mild stenosis on the RIGHT. 8. Mild anterolisthesis of L1 retrolisthesis of L2. 9. Severe disc space narrowing and desiccation at all levels.
== END 2020-10-13 16:58 | disposition home or self-care (01) ==
LOC: RADSHAW 17:01
PROVIDERS: PCP Family Medicine; Visit Provider Orthopaedic Surgery
DX: M54.5 Low back pain (principal); M48.07 Spinal stenosis, lumbosacral region; M48.061 Spinal stenosis, lumbar region without neurogenic claudication; M48.05 Spinal stenosis, thoracolumbar region
CPT/HCPCS: 72148

== ENCOUNTER → 2020-10-31 10:22 | Outpatient (BNVA) | payer MEDICARE, SELFPAY | PROVIDERS: PCP Family Medicine; Referring Provider Orthopaedic Surgery; Visit Provider Anesthesiology Pain Medicine | DX: G89.29 Other chronic pain (principal); M48.062 Spinal stenosis, lumbar region with neurogenic claudication; Z79.891 Long term (current) use of opiate analgesic | CPT/HCPCS: 99205 ==

== ENCOUNTER 2021-03-16 12:25 | Day surgery (SDC) | payer MEDICARE, SELFPAY ==
[2021-03-16] VITALS (17 sets, daily range): BP systolic 137–164; BP diastolic 63–79; PULSE 50–74; RESP 14–18; TEMP 36.3–36.8; O2SAT 90–98
--- NOTE | 2021-03-16 12:38 | ED_ITS ---
HPI - Abdominal Pain General: Chief Complaint: Abdominal Pain Stated Complaint: RIGHT LOWER ABDOMINAL PAIN Time Seen by Provider: 03/16/21 12:36 History of Present Illness: HPI narrative: Mr. Stevenson is an 80-year-old gentleman with significant past medical history of back pain, diabetes, hypertension, hyperlipidemia presents to the emergency department due to abdominal pain. Symptom onset was at rest approximately 2 days ago. Initially had right lower quadrant pain that lasted approximately 3 hours ago. He describes it as a aching occasionally sharp sensation. Intensity is moderate to severe when present. He has now had recurrent episodes though only mild pain right now. No specific exacerbating relieving factors. No signs of systemic illness. No nausea or vomiting. He has had a few episodes of loose stools however these have resolved. Denies frequent similar episodes in the past. He does have a history of abdominal surgeries Review of Systems General: Reports: 10 or more systems reviewed and unremarkable except in HPI and below PFSH ED PFSH: Medical History (Updated 03/17/21 @ 00:01 by ) BPH (benign prostatic hyperplasia) Depression Diabetes HTN (hypertension), benign Surgical History (Updated 03/16/21 @ 15:41 by Cy Meadows MD) History of foot surgery L -- chain saw injury History of neck surgery ACF x 1 History of total bilateral knee replacement Status post laparoscopic cholecystectomy (02/24/20) Family History Denies family history of Anesthesia complication Bleeding disorder Social History Second hand smoke exposure: No Alcohol intake: never Adopted: No Caregiver/support person: Yes Lives independently: Yes Housing: House Marital status: / Physical Exam Narrative: EXAM NARRATIVE: GENERAL/CONSTITUTIONAL - well-appearing. Uncomfortable Eyes - PERRL, no conjunctival injection ENMT - Atraumatic external nose and ears. Moist mucous membranes NECK - supple. trachea midline CARDIOVASCULAR - regular rate and rhythm. RESPIRATORY -clear to auscultation bilaterally. No retractions or accessory muscle use. ABDOMEN/GI - generalized tenderness palpation worse in the lower quadrants. There is a firm exquisitely tender mass palpable in the right inguinal region separate from normal bilateral testicles. There are no overlying skin changes. MSK - Extremities without obvious deformity or tenderness to palpation SKIN - Warm, Dry NEURO - alert and appropriately oriented. Moves all extremities equally. Course ED course: - Patient was seen and evaluated by me at bedside - Patient placed on cardiac monitors, IV access obtained - Initial evaluation notable for uncomfortable appearance, nontoxic. Concerning right inguinal mass. -Analgesia ordered - Labs notable for mild leukocytosis. No significant electrolyte abnormality, lactate normal. - Imaging notable for incarcerated inguinal hernia with small bowel obstruction. Prostate is abnormal and requires further outpatient evaluation. - Upon serial reexamination after treatment the patient was transiently improved with analgesia - Based on patient history, evaluation, labs, and imaging as interpreted the most likely cause of the patient's condition is incarcerated inguinal hernia with small bowel obstruction. - Dr. Meadows with the surgery service with consulted and evaluated the patient. Patient to be taken to surgery for surgical management. Vital Signs: Vital signs: Vital Signs Temperature 97.3 F L 03/16/21 17:35 Pulse Rate 69 03/16/21 18:15 Respiratory Rate 18 03/16/21 18:15 Blood Pressure 137/77 03/16/21 18:15 Pulse Oximetry 97 03/16/21 18:15 MDM - Abdominal Pain Medical Records: Attestation: I reviewed the patient's medical records. Lab Data: Attestation: I reviewed the patient's lab results. Labs: Lab Results 03/16/21 03/16/21 03/16/21 12:40 12:40 12:40 WBC 12.6 10^3/uL H 10 ^3/uL (4.0-10.0) RBC 5.35 10^6/uL H 10 ^6/uL (4.1-5.3) Hgb 15.9 g/dL g/dL (11.7-16.6) Hct 48.0 % % (42.0-52.0) MCV 89.7 fl fl (80-94) MCH 29.7 pg pg (28.0-34.0) MCHC 33.1 g/dL g/dL (30.0-36.0) RDW 14.1 % % (12.1-15.1) Plt Count 345 10^3/cmm 10^3 /cmm (130-400) MPV 10.4 fL fL (7.4-10.4) Neut % (Auto) 64.2 % % Lymph % (Auto) 28.6 % % [place] % (Auto) 5.0 % % Eos % (Auto) 1.6 % % Baso % (Auto) 0.4 % % Neut # (Auto) 8.12 10^3/uL H 10 ^3/uL (1.8-7.7) Lymph # (Auto) 3.6 10^3/uL 10^3/ uL (0.8-4.8) [place] # (Auto) 0.6 10^3/uL 10^3/ uL (0.2-0.9) Eos # (Auto) 0.2 10^3/uL 10^3/ uL (0.0-0.8) Baso # (Auto) 0.1 10^3/uL 10^3/ uL (0.0-0.1) Nucleated RBC % (a uto) 0 % % Nucleated RBCs # 0.0 /100WBC /100W BC Sodium 137 mmol/L mmol/L (136-145) Potassium 3.7 mmol/L mmol/L (3.5-5.1) Chloride 98 mmol/L mmol/L (98-107) Carbon Dioxide 27 mmol/L mmol/L (22-29) Anion Gap 15.7 (5-19) BUN 17 mg/dL mg/dL (8-23) Creatinine 0.6 mg/dL L mg/dL (0.7-1.2) GFR Calculation Not Reportable Glucose 115 mg/dL mg/dL (65-115) Calculated Osmolal ity 286 mOsm/kg mOsm/ kg (285-295) Lactate Calcium 9.1 mg/dL mg/dL (8.5-10.5) Total Bilirubin 0.3 mg/dL mg/dL (0.15-1.2) AST 17 U/L U/L (0-40) ALT 11 U/L U/L (0-41) Alkaline Phosphata se 103 IU/L IU/L (40-130) Total Protein 7.8 g/dL g/dL (6.6-8.7) Albumin 4.5 g/dL g/dL (3.5-5.2) Globulin 3.3 g/dL g/dL (1.3-4.6) Lipase 31 U/L U/L (13-60) Urine Color Yellow (Yellow) Urine Appearance Clear (CLEAR) Urine pH 6 (5-7) Ur Specific Gravit y 1.020 (1.005-1.030) Urine Protein Neg (Negative) Urine Glucose (UA) Norm (Normal) Urine Ketones 2+ H (Negative) Urine Blood Neg (Negative) Urine Nitrate Negative (Negative) Urine Bilirubin Neg (Negative) Urine Urobilinogen Norm mg/dL mg/dL (Negative) Ur Leukocyte Priyanka ase Negative (Negative) 03/16/21 13:50 WBC RBC Hgb Hct MCV MCH MCHC RDW Plt Count MPV Neut % (Auto) Lymph % (Auto) [place] % (Auto) Eos % (Auto) Baso % (Auto) Neut # (Auto) Lymph # (Auto) [place] # (Auto) Eos # (Auto) Baso # (Auto) Nucleated RBC % (a uto) Nucleated RBCs # Sodium Potassium Chloride Carbon Dioxide Anion Gap BUN Creatinine GFR Calculation Glucose Calculated Osmolal ity Lactate 0.8 mmol/L mmol/L (0.5-2.2) Calcium Total Bilirubin AST ALT Alkaline Phosphata se Total Protein Albumin Globulin Lipase Urine Color Urine Appearance Urine pH Ur Specific Gravit y Urine Protein Urine Glucose (UA) Urine Ketones Urine Blood Urine Nitrate Urine Bilirubin Urine Urobilinogen Ur Leukocyte Priyanka ase Imaging Data ^: CT Abd/Pel: Radiologist's impression: IMPRESSION: 1. Right inguinal hernia with incarcerated obstructed small bowel loop. Fluid- filled bowel loop in the hernia with proximal obstruction and associated fluid. No free air. Distal small bowel loops appear decompressed. 2. Colon is decompressed. 3. Markedly enlarged enhancing nodular prostate measuring 5.4 x 5.7 cm with thickening of the seminal vesicles. Recommend correlation for PSA. Findings are suspicious for neoplasia/hyperplasia. Discharge Plan Discharge Patient Disposition: Placed in Observation Clinical Impression: Small bowel obstruction Discharge Diet: Advance as tolerated Discharge Activity: Limit activity as instructed Coding Level of Care Code ED Agricultural Specialist for Jhon Rm
--- NOTE | 2021-03-16 13:00 | CT_ITS ---
WS: [id number] CT ABDOMEN PELVIS TECHNIQUE: Contrast-enhanced CT of the abdomen and pelvis with coronal and sagittal reformatted image s. CLINICAL INFORMATION: RLQ abd pain, ?hernia COMPARISON: CT February 11, 2020 DLP: 1660.[address] scans at [facility] use at least one of these dose optimization techniques: automated e xposure control; mA and/or kV adjustment per patient size (includes targeted exams where dose is matc hed to clinical indication); or iterative reconstruction. FINDINGS: Right inguinal hernia with herniated small bowel loops. Incarcerated dilated small bowel loop in the inguinal hernia with evidence of obstruction. Proximal small bowel obstruction with fluid-filled dila ema small bowel loops and air-fluid levels. Small bowel loops measure up to 3 cm. No free air. Distal small bowel loops appear decompressed. Marked heterogeneous nodular enhancement the prostate with thickening of the seminal vesicles. Prosta te measures 5.7 x 5.4 CM. Recommend correlation PSA. Evidence of bladder outlet obstruction. Small am ount of free fluid in the pelvis. Colon is decompressed. Bibasilar atelectasis. Normal liver. Prior cholecystectomy. Normal GE junction. Adrenal glands are no rmal. Normal renal parenchymal enhancement. No hydronephrosis in either kidney. Normal caliber abdomi nal aorta. Advanced spondylitic changes lumbar spine. CT/CT abdomen pelvis w con* [id number] IMPRESSION: 1. Right inguinal hernia with incarcerated obstructed small bowel loop. Fluid- filled bowel loop in the hernia with proximal obstruction and associated fluid. No free air. Distal small bowel loops appear decompressed. 2. Colon is decompressed. 3. Markedly enlarged enhancing nodular prostate measuring 5.4 x 5.7 cm with th ickening of the seminal vesicles. Recommend correlation for PSA. Findings are s uspicious for neoplasia/hyperplasia. Discussed with Dr. Hyde at 03/16/2021 2:37 PM.
[2021-03-16 13:13] LABS: Add Urine Microscopic? NO; Charge for UA Resulting for Rev
[2021-03-16 13:21] LABS: Basophils # 0.1 10^3/uL (0.0-0.1); Basophils % 0.4 %; Eosinophils # 0.2 10^3/uL (0.0-0.8); Eosinophils % 1.6 %; Hemoglobin 15.9 g/dL (11.7-16.6); Lymphocytes # 3.6 10^3/uL (0.8-4.8); Lymphocytes % 28.6 %; Mean Corpuscular HGB Conc 33.1 g/dL (30.0-36.0); Mean Corpuscular Hemoglobin 29.7 pg (28.0-34.0); Mean Corpuscular Volume 89.7 fl (80-94); Mean Platelet Volume 10.4 fL (7.4-10.4); Monocytes # 0.6 10^3/uL (0.2-0.9); Neutrophils # 8.12 10^3/uL (1.8-7.7); Neutrophils % 64.2 %; Nucleated Red Blood Cells % 0 %; Platelet Count 345 10^3/cmm (130-400); Red Blood Count 5.35 10^6/uL (4.1-5.3); Red Cell Distribution Width 14.1 % (12.1-15.1); White Blood Count 12.6 10^3/uL (4.0-10.0)
[2021-03-16] MEDS: morphine 4 mg/mL SDV 1 mL IVP (13:25)
[2021-03-16 13:27] LABS: Bilirubin Urine Neg (Negative); Blood Urine Neg (Negative); Glucose Urine UA Norm (Normal); Ketones Urine 2+ (Negative); Leukocyte Esterase Urine Negative (Negative); Nitrate Urine Negative (Negative); Protein Urine Neg (Negative); Urine Appearance Clear (CLEAR); Urine Color Yellow (Yellow); Urobilinogen Urine Norm (Negative); pH Urine 6 (5-7)
[2021-03-16 13:47] LABS: Alanine Aminotransferase 11 U/L (0-41); Albumin Level 4.5 g/dL (3.5-5.2); Alkaline Phosphatase 103 IU/L (40-130); Anion Gap 15.7 (5-19); Aspartate Amino Transferase 17 U/L (0-40); Blood Urea Nitrogen 17 mg/dL (8-23); Calcium 9.1 mg/dL (8.5-10.5); Carbon Dioxide 27 mmol/L (22-29); Chloride 98 mmol/L (98-107); Globulin 3.3 g/dL (1.3-4.6); Glucose 115 mg/dL (65-115); Lipase 31 U/L (13-60); Osmolality Calculated 286 mOsm/kg (285-295); Potassium 3.7 mmol/L (3.5-5.1); Sodium 137 mmol/L (136-145); Total Bilirubin 0.3 mg/dL (0.15-1.2); Total Protein 7.8 g/dL (6.6-8.7)
[2021-03-16 14:29] LABS: Lactate (Lactic Acid level) 0.8 mmol/L (0.5-2.2)
--- NOTE | 2021-03-16 15:34 | ANES.PREANE2 ---
Pre-Anesthetic Assessment Pre-Anesthetic Assessment: Height/Weight: Height 1.73 m Temp Pulse Resp BP Pulse Ox 98.3 F 74 18 160/76 97 03/16/21 12:42 03/16/21 12:37 03/16/21 13:25 03/16/21 15:15 03/16/21 15:15 Preop Diagnosis: Incarcerated hernia Proposed Procedure: Operation Date: 03/16/21 16:30 Proposed Procedures p Inguinal Hernia Repair(Right) - Cy Meadows MD Was Beta Doc taken within 24 hours: Yes Was Clonidine taken within 24 hours: N/A Last Intake: 04:30 Social: Social History: No alcohol and No tobacco Packs per day: Former cigar smoker Exam: Pre-Anes Outpt Exam: alert, oriented x 3, clear to auscultation bilaterally and regular rate & rhythm Airway: Submandibular: WNL Cervical ROM: Other (Limited extension) MP: 2 Dentition: False History/ROS: No significant history except as noted Pulmonary: Pulmonary: None reported CV/HEM: CV/HEM: HTN Comments: METs > 4 : Comments: BPH Hepatic: Hepatic: None reported GI: Comments: Incarcerated bowel. Denies GERD Metabolic: Metabolic: DM Musc/skel: Musc/skel: None reported Neuropsych: Neuropsych: None reported Anesthetic Plan: ASA status: 2E Anesthesia: Anesthesia Evaluation and General Other: RSI Risk of > 500 ml blood loss (7ml/kg in children): No Meds/Allergies Current Medications: Current Medications Generic Name Dose Route Start Last Admin Trade Name Freq PRN Reason Stop Dose Admin Morphine Sulfate 4 mg 03/16/21 13:16 03/16/21 13:25 Morphine 4 Mg/Ml Sdv 1 Ml IVP 4 mg Q1H PRN Administration pain PFSH Anesthesia PFSH: Medical History (Updated 03/16/21 @ 15:38 by Cy Meadows MD) BPH (benign prostatic hyperplasia) Depression Diabetes HTN (hypertension), benign Surgical History (Updated 03/16/21 @ 15:41 by Cy Meadows MD) History of foot surgery L -- chain saw injury History of neck surgery ACF x 1 History of total bilateral knee replacement Status post laparoscopic cholecystectomy (02/24/20) Family History Denies family history of Anesthesia complication Bleeding disorder Social History Second hand smoke exposure: No Alcohol intake: never Adopted: No Caregiver/support person: Yes Lives independently: Yes Housing: House Marital status: / Data Anesthesia CBC & Chem 7: 03/16/21 12:40 03/16/21 12:40 Other Labs: Laboratory Results - last 48 hr 03/16/21 03/16/21 03/16/21 12:40 12:40 12:40 WBC 12.6 H RBC 5.35 H Hgb 15.9 Hct 48.0 MCV 89.7 MCH 29.7 MCHC 33.1 RDW 14.1 Plt Count 345 MPV 10.4 Neut % (Auto) 64.2 Lymph % (Auto) 28.6 [place] % (Auto) 5.0 Eos % (Auto) 1.6 Baso % (Auto) 0.4 Neut # (Auto) 8.12 H Lymph # (Auto) 3.6 [place] # (Auto) 0.6 Eos # (Auto) 0.2 Baso # (Auto) 0.1 Nucleated RBC % (auto) 0 Nucleated RBCs # 0.0 Sodium 137 Potassium 3.7 Chloride 98 Carbon Dioxide 27 Anion Gap 15.7 BUN 17 Creatinine 0.6 L GFR Calculation Not Reportable Glucose 115 Calculated Osmolality 286 Lactate Calcium 9.1 Total Bilirubin 0.3 AST 17 ALT 11 Alkaline Phosphatase 103 Total Protein 7.8 Albumin 4.5 Globulin 3.3 Lipase 31 Urine Color Yellow Urine Appearance Clear Urine pH 6 Ur Specific [place] 1.020 Urine Protein Neg Urine Glucose (UA) Norm Urine Ketones 2+ H Urine Blood Neg Urine Nitrate Negative Urine Bilirubin Neg Urine Urobilinogen Norm Ur Leukocyte Esterase Negative 03/16/21 13:50 WBC RBC Hgb Hct MCV MCH MCHC RDW Plt Count MPV Neut % (Auto) Lymph % (Auto) [place] % (Auto) Eos % (Auto) Baso % (Auto) Neut # (Auto) Lymph # (Auto) [place] # (Auto) Eos # (Auto) Baso # (Auto) Nucleated RBC % (auto) Nucleated RBCs # Sodium Potassium Chloride Carbon Dioxide Anion Gap BUN Creatinine GFR Calculation Glucose Calculated Osmolality Lactate 0.8 Calcium Total Bilirubin AST ALT Alkaline Phosphatase Total Protein Albumin Globulin Lipase Urine Color Urine Appearance Urine pH Ur Specific [place] Urine Protein Urine Glucose (UA) Urine Ketones Urine Blood Urine Nitrate Urine Bilirubin Urine Urobilinogen Ur Leukocyte Esterase Cardiac Studies: No Data to Display
--- NOTE | 2021-03-16 15:35 | PM.HP ---
Providers/Chief Complaint Admitting Physician: General Surgery Cy Meadows MD Primary Care Provider: Jerson Hutson MD Chief Complaint: RIGHT LOWER ABDOMINAL PAIN History of Present Illness Jaden Stevenson is a 80 year old male who tells me that he has had a month of tenderness in the right inguinal region. It got worse yesterday. He says he said diarrhea for about a day and a half. He has not really had much in the way of nausea or vomiting. He ate breakfast at 430 this morning and did not have any problem. He eventually came to the emergency room because of his pain and a CAT scan revealed evidence of an incarcerated right inguinal hernia with evidence of a bowel obstruction. The patient tells me he has had a right inguinal hernia ever since he was a young child. He remembers wearing a truss from about the age of 5 to the age of 12. He said after that the hernia never really seem to bother him very much and so he may have had some discomfort over the years but has not really noticed a larger bulge, etc. Review of Systems General: Reports: 10 or more systems reviewed and unremarkable except in HPI and below Const: Denies: fever(s) Card: Denies: chest pain GI: Reports: abdominal pain (Right lower abdomen/groin crease) and diarrhea; Denies: nausea or vomiting Medications/Allergies Home Medications Medication Instructions Recorded Confirmed Last Taken Type aspirin 81 mg tablet,delayed 81 mg PO QAM 02/16/20 03/16/21 03/16/21 History release carvedilol 25 mg tablet 25 mg PO BID 02/16/20 03/16/21 03/16/21 History escitalopram oxalate 10 mg tablet 10 mg PO QAM 02/16/20 03/16/21 1 Day Ago History ~02/23/20 finasteride 5 mg tablet 5 mg PO BEDTIME 02/16/20 03/16/21 03/15/21 History amlodipine 10 mg PO QAM 02/23/20 03/16/21 03/16/21 History tamsulosin 0.4 mg PO BID 02/23/20 03/16/21 03/16/21 History temazepam 15 mg PO DAILY PRN 02/23/20 03/16/21 02/23/20 History docusate sodium [Colace] 100 mg PO BID PRN 03/16/21 03/16/21 Unknown History hydrochlorothiazide 25 mg PO DAILY PRN 03/16/21 03/16/21 Unknown History hydrocodone-acetaminophen 1 tab PO TID PRN 03/16/21 03/16/21 03/16/21 09:00 History insulin glargine [Lantus U-100 12 unit SUBCUT QAM 03/16/21 03/16/21 03/16/21 History Insulin] Allergies Allergy/AdvReac Type Severity Reaction Status Date / Time No Known Allergies Allergy Verified 03/16/21 15:27 PFSH Acute PFSH: Medical History (Updated 03/16/21 @ 15:38 by Cy Meadows MD) BPH (benign prostatic hyperplasia) Depression Diabetes HTN (hypertension), benign Surgical History (Updated 03/16/21 @ 15:41 by Cy Meadows MD) History of foot surgery L -- chain saw injury History of neck surgery [facility] x 1 History of total bilateral knee replacement Status post laparoscopic cholecystectomy (02/24/20) Family History Denies family history of Anesthesia complication Bleeding disorder Social History Second hand smoke exposure: No Alcohol intake: never Adopted: No Caregiver/support person: Yes Lives independently: Yes Housing: House Marital status: / Vitals/I&O/Wt Last Vital Signs Temp 98.3 F 03/16/21 12:42 Pulse 74 03/16/21 12:37 Resp 18 03/16/21 13:25 BP 160/76 03/16/21 15:15 Pulse Ox 97 03/16/21 15:15 Physical Exam Narrative: EXAM NARRATIVE: The patient was encountered in his room in the emergency department. He does not appear to be in any acute distress. The pupils are equal. No carotid bruits are heard. The lungs are clear anteriorly. The heart is regular. The abdomen is soft but reveals bowel sounds that may be slightly hyperactive. The patient has a mass in the right inguinal canal which is the center of his tenderness. I cannot get the hernia to reduce. There are no overlying skin changes. The extremities reveal no edema. Neurologically the patient is grossly intact. Urinary Catheter Management^: Burnette: Cath Placed During This Visit: yes Urinary Catheter Date of Insertion: 03/16/21 Urinary Catheter Time of Insertion: 15:23 Data : 03/16/21 12:40 03/16/21 12:40 CT Abd/Pel: Radiologist's impression: CT scan abdomen /pelvis 03/16/2021 IMPRESSION: 1. Right inguinal hernia with incarcerated obstructed small bowel loop. Fluid-filled bowel loop in the hernia with proximal obstruction and associated fluid. No free air. Distal small bowel loops appear decompressed. 2. Colon is decompressed. 3. Markedly enlarged enhancing nodular prostate measuring 5.4 x 5.7 cm with thickening of the seminal vesicles. Recommend correlation for PSA. Findings are suspicious for neoplasia/hyperplasia. A&P Assessment and plan (1) Incarcerated right inguinal hernia: CT reviewed. I agree with the assessment of an incarcerated right inguinal hernia resulting in at least a distal small bowel obstruction with the proximal loops being a little bit more decompressed. I discussed the situation with the patient. I have recommended urgent repair. We discussed hernia surgery in some detail including the risks of bleeding, infection, postoperative swelling, postoperative recurrence, etc. We also discussed postoperative activity limitations, etc. The patient seems to understand and would like to proceed with surgery tonight. The patient last ate breakfast this morning. He has done well the remainder of the day without any nausea or vomiting. I am going to make arrangements for a reduction and repair of the incarcerated inguinal hernia today. Status: Acute (2) Small bowel obstruction: Secondary to #1. Status: Acute Attestations Medical Necessity Statement*: The patient has an interest in going home tonight if at all possible. I told him I would reserve this decision for a time after I identify what is incarcerated in his hernia. For now he is going to be kept in outpatient status at his request. Coding Level of Care Code Acute [employer] Teacher for [facility] Fwd Diagnoses Incarcerated right inguinal hernia K40.30 Small bowel obstruction K56.609
[2021-03-16] MEDS: sodium chloride 0.9% 1,000 ML 30 ML IV (16:00)
--- NOTE | 2021-03-16 17:00 | PM.OP ---
Operative Report Date of procedure: March 16, 2021 Pre-op Diagnosis: Incarcerated right inguinal hernia. Post-op diagnosis: same Procedure Done: Reduction and repair of incarcerated right inguinal hernia. Pathology: none sent Surgeon: Cy Meadows Anesthesia: General Estimated blood loss (mL): 5 Complications: None. Condition: stable Disposition: PACU Procedure: The patient was brought to the operating room and was placed in a supine position on the operating room table. General endotracheal anesthesia was induced. The patient already had a Burnette catheter in place that had been placed in the emergency department. The right inguinal hernia was actually very easily reduced at this point after he was relaxed. The right inguinal region was prepped and draped in a sterile fashion. A combination of 1% lidocaine and 0.5% bupivacaine with 1-200,000 parts epinephrine was used for local anesthesia throughout the procedure. A transverse incision was carried out above the level of the pubic tubercle. Cautery was used to divide the subcutaneous tissue down to the external oblique aponeurosis which was incised in parallel with its fibers over the inguinal canal. The entire inguinal canal was filled with the hernia sac with some peritoneal fluid within it. No odor or evidence of necrosis was present anywhere. The sac was intimately associated with the spermatic cord elements and as this was traced distally the sac was found to go all the way to the testicle on the right side. The sac was actually opened above the testicle and was freed from the spermatic cord elements more proximally. The spermatic cord was then able to be looped with a Marli drain. The sac extended all the way to the internal inguinal ring, forming an indirect inguinal hernia. The hernia sac and contents were carefully freed from the remainder of the cord structures down to the internal ring. The sac had been opened and this facilitated dissection. The sac was ligated with a suture of 2-0 Vicryl at the internal ring and the excess sac was excised. A large mesh plug was used to hold the remaining hernia sac in a reduced position and was held in place with a suture of 0 Prolene that was used to connect the conjoined area medially to the reflecting edge of Poupart's ligament laterally. The inguinal canal floor was very weak distally, perhaps contributing to the presence of the hernia in the sense that it probably represented a small to moderately sized direct hernia. The inguinal canal floor was reformed in this area by attaching the conjoined area medially to the reflecting edge of Poupart's ligament laterally with multiple simple sutures of 0 Prolene. The onlay patch was then anchored at the tubercle with a suture of 0 Prolene and was laid along the new inguinal canal floor, allowing the cord structures to pass through the precut hole in the mesh. The two wings of mesh were sewn to each other above the level of the internal ring with a suture of 0 Prolene. The external oblique aponeurosis was closed over the top of the cord using a running suture of 3-0 Vicryl. The testicle and distal spermatic cord were confirmed to be placed distally into the right hemiscrotum. The wound was irrigated with saline. The subcutaneous tissue was brought together with a simple suture of 3-0 Vicryl and the skin was approximated using a running subcuticular suture of 3-0 Vicryl. Benzoin and Steri-Strips were placed over the incision and a sterile bandage followed. Both testicles were confirmed to be within the scrotum. The Burnette catheter was removed immediately postoperatively. The patient was taken to the recovery area in stable condition postoperatively.
--- NOTE | 2021-03-16 17:19 | SUR.PHASEI ---
5798 PT TO PACU SLEEPY WITH ORALAIRWAY IN PLACE, VSS IV PATENT RT GROIN DRESSING D/I
--- NOTE | 2021-03-16 17:24 | SUR.PHASEI ---
PT CARE ASSUMED BY Yenifer CASTRO RN.
--- NOTE | 2021-03-16 17:33 | ANE.PACU2 ---
Inpatient post-anesthesia follow up: Airway intact: Yes Vital signs: Temperature 97.9 F Pulse Rate 67 Respiratory Rate 14 Blood Pressure 151/63 Pulse Oximetry 95 Oxygen Delivery Me thod Simple Mask Oxygen Flow Rate 8 Fraction of Inspir ed Oxygen Hydration adequate: Yes Nausea and vomiting: No Pain level: 1 Mental status: Baseline
== END 2021-03-16 18:20 | disposition home or self-care (01) ==
LOC: ER 15:08 → OR 15:33
PROVIDERS: Emergency Provider Emergency Medicine; PCP Family Medicine; Visit Provider Surgery
PROC: 0YU50JZ Supplement Right Inguinal Region with Synthetic Substitute, Open Approach (ICD-10-PCS; CPT 49507; principal; 2021-03-16 16:30)
DX: R10.31 Right lower quadrant pain (principal); N40.0 Benign prostatic hyperplasia without lower urinary tract symptoms; I10 Essential (primary) hypertension; E11.9 Type 2 diabetes mellitus without complications; Z79.4 Long term (current) use of insulin; Z90.49 Acquired absence of other specified parts of digestive tract
CPT/HCPCS: 49507; 51702; 74177; 80053; 81003; 83605; 83690; 85025; C1781; J0330; J0690; J1100; J2270; J2405; J2704; J3010; J3490; J7030; Q9967

== ENCOUNTER → 2022-01-02 09:06 | Outpatient (BNVA) | payer MEDICARE, SELFPAY | PROVIDERS: PCP Family Medicine; Visit Provider Family Medicine | DX: I10 Essential (primary) hypertension (principal); E11.9 Type 2 diabetes mellitus without complications; M48.062 Spinal stenosis, lumbar region with neurogenic claudication | CPT/HCPCS: 80053; 80061; 83036; 85025 ==

== ENCOUNTER → 2022-07-25 09:40 | Outpatient (BNVA) | payer BC, SELFPAY | PROVIDERS: PCP Family Medicine; Visit Provider Family Medicine | DX: I10 Essential (primary) hypertension (principal); E11.9 Type 2 diabetes mellitus without complications | CPT/HCPCS: 80053; 80061; 83036 ==

== ENCOUNTER → 2022-08-14 09:04 | Outpatient (BNVA) | payer BC, SELFPAY | PROVIDERS: PCP Family Medicine; Visit Provider Orthopaedic Surgery | DX: S46.912A Strain of unspecified muscle, fascia and tendon at shoulder and upper arm level, left arm, initial encounter (principal); X58.XXXA Exposure to other specified factors, initial encounter | CPT/HCPCS: 73030 ==

== ENCOUNTER → 2023-07-30 09:35 | Outpatient (BNVA) | payer BC, SELFPAY | PROVIDERS: PCP Family Medicine; Visit Provider Family Medicine | DX: I10 Essential (primary) hypertension (principal); E11.9 Type 2 diabetes mellitus without complications; M48.062 Spinal stenosis, lumbar region with neurogenic claudication | CPT/HCPCS: 80053; 80061; 83036; 85025 ==

== ENCOUNTER → 2024-01-28 10:51 | Outpatient (BNVA) | payer BC, SELFPAY | PROVIDERS: PCP Family Medicine; Visit Provider Family Medicine | DX: I10 Essential (primary) hypertension (principal); E11.9 Type 2 diabetes mellitus without complications | CPT/HCPCS: 80053; 80061; 83036; 85025 ==

== ENCOUNTER → 2024-09-08 08:23 | Outpatient (BNVA) | payer BC, SELFPAY | PROVIDERS: PCP Family Medicine; Visit Provider Family Medicine | DX: I10 Essential (primary) hypertension (principal); E11.9 Type 2 diabetes mellitus without complications | CPT/HCPCS: 80053; 80061; 83036; 85025 ==

== ENCOUNTER → 2025-02-18 08:52 | Outpatient (BNVA) | payer BC, SELFPAY | PROVIDERS: PCP Family Medicine; Visit Provider Family Medicine | DX: I10 Essential (primary) hypertension (principal); E11.9 Type 2 diabetes mellitus without complications | CPT/HCPCS: 80053; 80061; 83036 ==